=== PATIENT | female | born 1965 | race Caucasian/White ===

== ENCOUNTER 2025-03-15 21:11 | Emergency (ER) | payer OTHER, SELFPAY ==
[2025-03-15 21:18] VITALS: BP 149/88
[2025-03-15 22:03] VITALS: BP 135/67
[2025-03-15 22:20] LABS: C-Reactive Protein 5.50 mg/L (0.0-10.00)
[2025-03-15 22:32] LABS: ALT (SGPT) 35 U/L (0-35); AST (SGOT) 31 U/L (14-36); Albumin 4.8 g/dl (3.5-5.0); Alkaline Phosphatase 58 U/L (38-126); Blood Urea Nitrogen 20 mg/dl (7-17); Calcium 10.1 mg/dl (8.4-10.2); Carbon Dioxide 25 mmol/L (22-30); Chloride 104 mmol/L (98-107); Glucose 153 mg/dl (70-99); Potassium 4.3 mmol/L (3.5-5.1); Sodium 136 mmol/L (135-145); Total Protein 8.2 g/dl (6.3-8.2); eGFR > 60.00
[2025-03-15 23:43] VITALS: BMI 25.9
[2025-03-16] MEDS: REGLAN 10 MG PO (00:51)
--- NOTE | 2025-03-16 01:55 | ED.GENMED ---
History of Present Illness
General
Chief Complaint: Skin Problem
Source: patient and spouse
Exam Limitations: none
Time Seen by Provider: 03/16/25 00:01
Nursing documentation reviewed up to this point in time: agreed with
History of Present Illness
History of Present Illness:
59-year-old female presenting to the emergency department today with concerns of ongoing rash over the past 8 days. Was seen by shower screen installer a few days ago was prescribed prednisone took 1 dose but felt nauseous so has not been taking it since.
Denies any chest pain shortness of breath but does have some bodyaches and has some vague generalized weakness.
Review of Systems
Review of Systems
Allergies reviewed?: Yes
All Other Systems: ROS reviewed and negative except as documented in HPI and ROS
Phy Exam
Physical Exam
Physical Exam:
GENERAL: Alert , in no apparent distress
EYE: pupils equal and reactive
NECK: Supple, no significant adenopathy.
ENT: Scattered maculopapular rash to the left lateral neck no tenderness no warmth o/p clr, mmm.
CARDIAC: Regular rate and rhythm .
LUNGS: Clear breath sounds bilaterally, no acute respiratory distress, no wheezes/rales/rhonchi
ABDOMEN: Scattered maculopapular rash to the and low back right side, abdomen is soft, without focal tenderness, no r/g, no cvat
NEUROLOGICAL: Alert and oriented, no focal neuro deficits
SKIN: Warm and dry, skin intact.
MUSCULOSKELETAL: No edema, well perfused.
PSYCH: Normal and appropriate interaction.
Course
Orders/Labs/Results
Orders:
Orders
03/15/25 21:45
C-Reactive Protein Urgent
Comprehensive Metabolic Panel Urgent
03/16/25 00:40
Dexamethasone [Decadron] 10 mg PO NOW STA
Metoclopramide [Reglan] 10 mg PO NOW STA
Abnormal Lab Results
03/15/25
21:45
BUN 20 H mg/dl
(7-17)
Creatinine 0.5 L mg/dL
(0.6-1.0)
Glucose 153 H mg/dl
(70-99)
03/16/25 00:10
03/15/25 21:45
Vital Signs
Initial and Last Documented VS:
Initial Vital Signs
Temp Pulse Resp BP Pulse Ox
97.6 F 62 20 149/88 99
03/15/25 21:18 03/15/25 21:18 03/15/25 21:18 03/15/25 21:18 03/15/25 21:18
Last Documented Vital Signs
Temp Pulse Resp BP Pulse Ox
97.6 F 59 20 135/67 99
03/15/25 21:18 03/15/25 22:03 03/15/25 22:03 03/15/25 22:03 03/15/25 22:03
MDM/Problems Addressed
MDM/Problems Addressed:
59-year-old female presenting to the emergency department today with concerns of scattered rash ongoing over the past 8 days took 1 dose of steroid 3 days ago but then discontinued the steroid due to nausea. On arrival here patient well-appearing
no distress blood pressure elevated otherwise vital signs are normal. BMP without emergent findings CBC was clotted but not redrawn considering the patient appears well and is unlikely to globe changer. Rash consistent with potential contact
dermatitis. Patient also did recently have a viral syndrome, postviral syndrome inflammatory rash was also considered. She was started on steroid and advised for close outpatient follow-up. Return precautions given.
*Pulse Oximetry
SaO2: 99
Oxygen Mode of Delivery: Room air
Patient hypoxic: no (99)
*Critical Care Note
Total Time (30-74mins, 75-104mins- exclusive of procedures): Not Applicable
ED Attending Note
-
Portions of this chart may have been created with voice recognition software.� Occasional wrong word or��sound alike� substitutions may have occurred due to the inherent limitations of voice recognition software.
Discharge Plan
Departure
Patient Disposition: Home (Routine Discharge)
Date of Disposition: 03/16/25
Time of Disposition: 01:57
Patient with high blood pressure during this ER visit?: No
Condition: Good
Covid-19: Not Applicable
Discharge Problem:
Rash
Instructions: Skin Rash (DC)
Referrals:
Sherif Smart MD [Family Provider, Internal Medicine]
Activity Restrictions/Additional Instructions:
You came to the emergency department today with concerns of rash. No signs of any life-threatening cause. Please take the steroid and follow-up closely with your shower screen installer. Return for any worsening, new or concerning symptoms.
Interventions
Interventions:
*Risk Screen - Suicide Last Done: 03/15/25 23:43
*General Assessment Last Done: 03/15/25 21:18
*Neglect/Abuse Screening Last Done: 03/15/25 23:43
*ED- Fall Risk Assessment Last Done: 03/15/25 23:43
*ED COVID-19 Vaccine History Last Done: 03/15/25 23:43
Discharge Date and Time
Print Language: GREENLANDIC
[2025-03-16] MEDS: DECADRON 10 MG PO (02:02)
[2025-03-16 02:05] VITALS: BP 140/65
== END 2025-03-16 02:10 | disposition home or self-care (01) ==
LOC: EMR 21:11
PROVIDERS: Student in an Organized Health Care Education/Training Program; EMERGENCY PHYSICIAN Emergency Medicine; FAMILY PHYSICIAN Internal Medicine
DX: R21 Rash and other nonspecific skin eruption (principal)
CPT/HCPCS: 99283; 80053; 86140